=== PATIENT | male | born 1985 | race African-American/Black ===

== ENCOUNTER 2017-11-17 22:15 | Emergency (ER) | payer SELFPAY ==
[~2017-11-17] VITALS: Ht 165.1 cm; Wt 73.0 kg
[2017-11-17] MEDS ORDERED: LABETALOL HCL 20MG/4ML CARPUJECT IV ONE (23:15)
[2017-11-17] MEDS ORDERED: SODIUM CHLORIDE 0.9% 1000ML BAG (SEPSIS BOLUS) IV ONE (23:15)
[2017-11-17] MEDS ORDERED: FENTANYL CITRATE/PF 50MCG/ML 2ML VIAL IV ONE (23:15)
[2017-11-17] MEDS ORDERED: ASPIRIN 81MG TABLET PO ONE (23:15)
[2017-11-17] MEDS ORDERED: NITROGLYCERIN OINT 1GM/INCH UDPKT TD ONE (23:15)
[2017-11-17 23:29] LABS: BASOPHILS % 0.3 % (0.0-2.0); EOSINOPHILS % 0.9 % (0.0-5.0); HEMATOCRIT. 45.5 % (42.0-52.0); HEMOGLOBIN. 15.6 g/dL (14.0-18.0); MEAN CORPUSCULAR VOLUME 96.1 fL (80.0-94.0); MEAN PLATELET VOLUME 7.2 fl (7.4-10.4); MONOCYTES % 9.5 % (2.0-8.0); NEUTROPHILS % 71.3 % (40.0-76.0); PLATELET 302 x1000/uL (130-400); RED BLOOD CELL COUNT 4.74 mill/uL (4.7-6.1); RED CELL DISTRIBUTION WIDTH 12.7 % (11.6-14.6)
[2017-11-17] MEDS ORDERED: LABETALOL 5MG/ML SYR 20 MG/4 ML SYRINGE IV SCH (23:30)
[2017-11-17 23:34] LABS: CHLORIDE 101 mEq/L (98-107)
[2017-11-17 23:36] LABS: D-DIMER 0.32 mg/L FEU (<0.50); INR 1.1; PROTHROMBIN TIME 11.1 sec (9.4-11.6)
[2017-11-17 23:38] LABS: ETHANOL BLOOD < 10 mg/dL
[2017-11-17 23:43] LABS: CREATINE KINASE 260 IU/L (39-308)
[2017-11-18 00:16] LABS: CLARITY URINE CLEAR (CLEAR); COLOR URINE YELLOW (YELLOW); KETONES URINE NEGATIVE (NEGATIVE); LEUKOCYTE ESTERASE URINE NEGATIVE (NEGATIVE); NITRITE URINE NEGATIVE (NEGATIVE); OCCULT BLOOD URINE NEGATIVE (NEGATIVE); PROTEIN URINE NEGATIVE (NEGATIVE); SPECIFIC GRAVITY URINE 1.004 (1.005-1.030); UROBILINOGEN URINE 0.2 E.U./dL (0.2-1.0)
[2017-11-18 00:38] LABS: *AMPHETAMINES SCREEN URINE NEGATIVE (NEGATIVE); CANNABINOID URINE SCREEN NEGATIVE (NEGATIVE)
[2017-11-18 00:39] LABS: *BARBITURATES SCREEN URINE NEGATIVE (NEGATIVE); *BENZODIAZEPINES SCREEN URINE NEGATIVE (NEGATIVE); *COCAINE SCREEN URINE PRESUMTIVE POSITIVE (NEGATIVE); METHADONE URINE SCREEN NEGATIVE (NEGATIVE); OPIATES URINE SCREEN NEGATIVE (NEGATIVE); PHENCYCLIDINE URINE SCREEN NEGATIVE (NEGATIVE)
[2017-11-18] MEDS ORDERED: CLONIDINE 0.1MG TABLET PO STA (00:55)
[2017-11-18 01:44] VITALS: BP 147/99
== END 2017-11-18 01:45 | disposition home or self-care (01) ==
LOC: ER 22:17
DX: R00.2 Palpitations (principal); I10 Essential (primary) hypertension; F14.10 Cocaine abuse, uncomplicated; F17.200 Nicotine dependence, unspecified, uncomplicated; Z79.82 Long term (current) use of aspirin
CPT/HCPCS: 36415; 71045; 80053; 80305; 81003; 82550; 83605; 83690; 83735; 83880; 84484; 85025; 85379; 85610; 93005; 96361; 96374; 99285; G0482; J3490; J7030; Z7610

== ENCOUNTER 2017-11-29 06:28 | Emergency (ER) | payer SELFPAY ==
[~2017-11-29] VITALS: Ht 165.1 cm; Wt 73.0 kg
[2017-11-29 07:05] VITALS: BP 141/90
== END 2017-11-29 08:09 | disposition left against medical advice (07) ==
LOC: ER 06:28
DX: Z53.21 Procedure and treatment not carried out due to patient leaving prior to being seen by health care provider (principal)

== ENCOUNTER 2018-06-09 22:09 | Emergency (ER) | payer MEDICAID ==
[~2018-06-09] VITALS: Ht 162.6 cm; Wt 68.0 kg
[2018-06-09] MEDS ORDERED: SODIUM CHLORIDE 0.9% 1,000 ML IV ONE (23:18)
[2018-06-09] MEDS ORDERED: LORAZEPAM 2MG/ML CPJ IV ONE (23:30)
[2018-06-10 00:03] LABS: BASOPHILS % 0.3 % (0.0-2.0); EOSINOPHILS % 0.8 % (0.0-5.0); HEMATOCRIT. 48.4 % (42.0-52.0); HEMOGLOBIN. 16.5 g/dL (14.0-18.0); LYMPHOCYTES % 32.2 % (20.0-50.0); MEAN CORPUSCULAR VOLUME 96.6 fL (80.0-94.0); MEAN PLATELET VOLUME 7.8 fl (7.4-10.4); MONOCYTES % 9.4 % (2.0-8.0); NEUTROPHILS % 57.3 % (40.0-76.0); PLATELET 353 x1000/uL (130-400); RED BLOOD CELL COUNT 5.01 mill/uL (4.7-6.1); RED CELL DISTRIBUTION WIDTH 12.8 % (11.6-14.6)
[2018-06-10 00:11] LABS: CHLORIDE 102 mEq/L (98-107)
[2018-06-10 00:16] LABS: ETHANOL BLOOD 11 mg/dL
[2018-06-10 00:57] LABS: *AMPHETAMINES SCREEN URINE PRESUMTIVE POSITIVE (NEGATIVE); *BARBITURATES SCREEN URINE NEGATIVE (NEGATIVE); *BENZODIAZEPINES SCREEN URINE NEGATIVE (NEGATIVE); *COCAINE SCREEN URINE PRESUMTIVE POSITIVE (NEGATIVE); METHADONE URINE SCREEN NEGATIVE (NEGATIVE)
[2018-06-10 00:58] LABS: CANNABINOID URINE SCREEN NEGATIVE (NEGATIVE); OPIATES URINE SCREEN NEGATIVE (NEGATIVE); PHENCYCLIDINE URINE SCREEN NEGATIVE (NEGATIVE)
[2018-06-10 05:00] VITALS: BP 152/60
== END 2018-06-10 05:26 | disposition home or self-care (01) ==
LOC: ER 22:09
DX: F15.188 Other stimulant abuse with other stimulant-induced disorder (principal); R00.0 Tachycardia, unspecified; F14.10 Cocaine abuse, uncomplicated; I10 Essential (primary) hypertension; F17.210 Nicotine dependence, cigarettes, uncomplicated
CPT/HCPCS: 36415; 80053; 80305; 85025; 93005; 96361; 96374; 99284; G0482; J2060; J7030